=== PATIENT | female | born 1965 | race Caucasian/White ===

== ENCOUNTER 2018-08-22 22:10 | Emergency (ER) | payer MEDICAID ==
[~2018-08-22] VITALS: Ht 170.2 cm; Wt 67.4 kg
[~2018-08-22 22:10] MED LIST: CYCL-259; IBUP-1623; MORP15TA; NAPR220C2 PO; RANI150T23; TRAM-385; folic acid
[2018-08-22] MEDS ORDERED: CEPHALEXIN 500 MG CAPSULE ONE (22:54)
[2018-08-22] MEDS ORDERED: SULFAMETH./TRIMETHOPRIM DS 800MG/160MG TABLET ONE (22:54)
[2018-08-22] MEDS ORDERED: OXYcodone/APAP 5/325MG TABLET ONE (22:54)
[2018-08-22] MEDS ORDERED: IBUPROFEN 200 MG TABLET ONE (22:55)
[2018-08-22] MEDS ORDERED: LIDOCAINE 2%, 20ML SQ ONE (23:00)
[2018-08-22] MEDS ORDERED: CEPHALEXIN 500 MG CAPSULE PO ONE (23:00)
[2018-08-22] MEDS ORDERED: OXYcodone/APAP 5/325MG TABLET PO ONE (23:00)
[2018-08-22] MEDS ORDERED: IBUPROFEN 200 MG TABLET PO ONE (23:00)
[2018-08-22] MEDS ORDERED: LIDOCAINE-MPF 2%, 2ML ONE ×2 (23:00→23:31)
[2018-08-22] MEDS ORDERED: SULFAMETH./TRIMETHOPRIM DS 800MG/160MG TABLET PO ONE (23:00)
[2018-08-23 00:06] VITALS: BP 109/78
== END 2018-08-23 00:10 | disposition home or self-care (01) ==
LOC: ED 23:59
DX: L02.31 Cutaneous abscess of buttock (principal); L02.413 Cutaneous abscess of right upper limb; F17.200 Nicotine dependence, unspecified, uncomplicated; Z88.1 Allergy status to other antibiotic agents; Z88.0 Allergy status to penicillin; Z88.6 Allergy status to analgesic agent; Z88.8 Allergy status to other drugs, medicaments and biological substances
CPT/HCPCS: 10061; 99284; J3490

== ENCOUNTER 2018-10-23 00:18 | Emergency (ER) | payer MEDICAID ==
[~2018-10-23] VITALS: Ht 162.6 cm; Wt 65.0 kg
[2018-10-23] MEDS ORDERED: ACETAMINOPHEN 500 MG TABLET PO ONE (01:05)
[2018-10-23] MEDS ORDERED: ACETAMINOPHEN 500 MG TABLET ONE (01:13)
[2018-10-23 03:39] VITALS: BP 128/70
== END 2018-10-23 04:21 | disposition home or self-care (01) ==
LOC: ED 02:07
DX: S02.32XA Fracture of orbital floor, left side, initial encounter for closed fracture (principal); S02.609A Fracture of mandible, unspecified, initial encounter for closed fracture; R51 Headache; Y04.8XXA Assault by other bodily force, initial encounter; Y93.89 Activity, other specified; Y92.89 Other specified places as the place of occurrence of the external cause; Y99.8 Other external cause status
CPT/HCPCS: 70450; 70486; 71046; 99284

== ENCOUNTER → 2020-06-09 | Outpatient (CLI) | payer OTHER ==
[~2020-06-09] MED LIST changes: +RANI-467; -RANI150T23
== END | disposition home or self-care (01) ==
LOC: RAD 13:23
PROVIDERS: ATTEND Obstetrics & Gynecology
DX: N95.0 Postmenopausal bleeding (principal); R19.09 Other intra-abdominal and pelvic swelling, mass and lump; N85.4 Malposition of uterus
CPT/HCPCS: 76830

== ENCOUNTER 2020-08-11 19:32 | Emergency (ER) | payer MEDICAID, OTHER ==
[~2020-08-11] VITALS: Ht 170.2 cm; Wt 70.0 kg
[2020-08-11 20:07] VITALS: BP 105/73
== END 2020-08-11 20:14 ==
LOC: ED 20:05
DX: M25.562 Pain in left knee (principal); Z53.21 Procedure and treatment not carried out due to patient leaving prior to being seen by health care provider